=== PATIENT | female | born 1965 | race Caucasian/White ===

== ENCOUNTER 2018-02-27 10:04 | Inpatient (IN) | payer MEDICAID ==
[~2018-02-27] VITALS: Ht 160 cm; Wt 91.6 kg
[2018-02-27] MEDS ORDERED: NACL 0.9% 1,000 ML IV ONE (10:16)
[2018-02-27 10:20] VITALS: BP_SYST 126
[2018-02-27] MEDS ORDERED: KETOROLAC TROMETHAMINE 30 MG VIAL IVP ONE (10:30)
[2018-02-27] MEDS ORDERED: ONDANSETRON HCL 4 MG/2 ML VIAL IVP ONE ×2 (10:30→12:45)
--- NOTE | 2018-02-27 10:50 | NUR ---
DR NICHOLSON AT BEDSIDE FOR EVALUATION, PLACED IN POSITION FOR VAGINAL EXAM. PT TOLERATED IT WELL. SPECIMEN FOR WET MOUNT AND WOUND CULTURE LABELLED AND SENT.
--- NOTE | 2018-02-27 10:51 | NUR ---
Patient to ER bed 7 to gown for evaluation. Side rails up. Report given to Filomena DIAZ.
[2018-02-27 10:59] LABS: BASOPHILS # (AUTO) 0.2 K/uL (0.0-0.2); BASOPHILS % (AUTO) 1.6 % (0.0-2.0); EOSINOPHILS # (AUTO) 0.2 K/uL (0.0-0.4); EOSINOPHILS % (AUTO) 1.5 % (0.0-4.0); HEMATOCRIT 36.6 % (36-48); HEMOGLOBIN 11.7 g/dL (12.0-16.0); LYMPHOCYTES # (AUTO) 1.8 K/uL (1.0-5.5); MEAN CORPUSCULAR HEMOGLOBIN 31 pg (27-31); MEAN CORPUSCULAR HGB CONC 32 % (32-36); MEAN CORPUSCULAR VOLUME 97 fL (79.0-98.0); MONOCYTES # (AUTO) 0.6 K/uL (0.0-1.0); MONOCYTES % (AUTO) 4.6 % (1.7-9.3); NEUTROPHILS # (AUTO) 10.2 K/uL (1.8-7.7); NEUTROPHILS % (AUTO) 78.3 % (40.0-70.0); PLATELET COUNT (AUTO) 496 K/uL (130-430); RED BLOOD CELL COUNT(AUTO) 3.77 MIL/uL (4.2-6.2)
[2018-02-27 11:03] LABS: CALCIUM 9.2 mg/dL (8.4-11.0); CREATININE 1.39 mg/dL (0.55-1.30)
[2018-02-27 11:09] LABS: ALBUMIN 3.6 g/dL (3.4-4.8); INR 1.1 (0.8-1.2); TOTAL BILIRUBIN 0.2 mg/dL (0.0-1.0)
[2018-02-27 11:10] LABS: POTASSIUM 2.5 mmol/L (3.5-5.1)
--- NOTE | 2018-02-27 11:20 | NUR ---
PT RESTING QUIETLY. NO CHANGES
[2018-02-27] MEDS ORDERED: POTASSIUM CHLORIDE 20 MEQ/PKT PACKET PO ONE (12:00)
--- NOTE | 2018-02-27 12:27 | NUR ---
Pt requesting pain medication, Dr Henley notified.
[2018-02-27 12:36] LABS: BILIRUBIN,URINE NEGATIVE (NEGATIVE); BLOOD, URINE 2+ (NEGATIVE); CLARITY/URINE CLEAR (CLEAR); COLOR,URINE YELLOW (YELLOW); GLUCOSE,URINE NEGATIVE (NEGATIVE); KETONES,URINE NEGATIVE (NEGATIVE); LEUKOCYTE ESTERASE ,URINE 3+ (NEGATIVE); NITRITE, URINE NEGATIVE (NEGATIVE); PROTEIN URINE 2+ (NEGATIVE); UROBILINOGEN,URINE 0.2 (0.2-1.0)
[2018-02-27] MEDS ORDERED: MORPHINE 4 MG/ML INJ. SYRINGE IVP ONE (12:45)
[2018-02-27 12:48] LABS: BACTERIA,URINE MODERATE /HPF (None Seen); MUCUS,URINE None Seen /LPF (None Seen)
[2018-02-27] MEDS ORDERED: metroNIDAZOLE 500 mg/NS 100 ML IV ONE (13:00)
[2018-02-27] MEDS ORDERED: metroNIDAZOLE 500 MG TABLET PO ONE ×2 (13:00→13:15)
[2018-02-27] MEDS ORDERED: CIPROFLOXACIN HCL 500 MG TABLET PO ONE (13:00)
[2018-02-27] MEDS ORDERED: cefTRIAXone 1 GM IVPB PREMIX 50 ML IV ONE (13:00)
--- NOTE | 2018-02-27 13:01 | NUR ---
AWAITING ORDERS FOR ADMISSION
--- NOTE | 2018-02-27 13:22 | NUR ---
Patient will be admitted to care of DR READ. Admitted to TELE unit. Will go to room 101B. Belongings list completed. Summary report printed. Report will be given at bedside.
--- NOTE | 2018-02-27 13:39 | NUR ---
ADMISSION NOTE Received patient from ER via gurney. Patient admitted with diagnosis of hypokalemia and gastroenteritis. Patient is awake, alert, oriented X4. Patient oriented to hospital room, call light, toileting, pain management and safety-teach back done. Personal belongings checked and Belongings List documented. Call light within reach.
[2018-02-27 13:42] VITALS: BP_SYST 136
--- NOTE | 2018-02-27 13:43 | NUR ---
CONSULTATION PAGED REASON FOR CONSULTATION:LABIAL LESION WAS CONSULT CALLED?Y PERSON WHO WAS NOTIFIED:ZURDO CONSULTING PHYSICIAN:MATTY CHILDERS (TRISHA MONAE CIVIL RIGHTS REPRESENTATIVE) MEDICAL ASSISTANT SUPERVISOR SPECIALTY:OB MEDICAL ASSISTANT SUPERVISOR PHONE NUMBER:[phone] ORDERING PHYSICIAN:LESLIE GOMEZ
--- NOTE | 2018-02-27 13:50 | NUR ---
Opening Note/Paged received report from admitting RN, pt resting in bed, A&Ox4, respirations even and unlabored on room air, no acute distress noted, IV site clean, dry, and intact, pt complaint of pain 11/05 to vaginal lesion, paged Dr. Rider for orders, pt educated on use of call light and asked to call for assistance, pt verbalized understanding, call light in reach, bed in low and locked position, bed alarm on, fall and aspiration precautions in place.
[2018-02-27] MEDS ORDERED: ONDANSETRON HCL 4 MG/2 ML VIAL IVP PRN (14:45)
[2018-02-27] MEDS ORDERED: ACETAMINOPHEN 325 MG TABLET PO PRN (14:45)
--- NOTE | 2018-02-27 14:49 | NUR ---
MD Rounds rounds with Dr. Adry MD aware of potassium 2.5 and that potassium 40mEq PO was given in ER.
[2018-02-27 15:06] LABS: BARBITURATE, URINE NEGATIVE (NEG <=200); BENZODIAZEPINE, URINE NEGATIVE (NEG <=150); CANNABINOID, URINE NEGATIVE (NEG <=50); COCAINE, URINE NEGATIVE (NEG <=150); METHAMPHETAMINES SCREEN,URINE NEGATIVE (NEG <=500); OPIATE, URINE NEGATIVE (NEG <=100); PHENCYCLIDINE SCREEN,URINE NEGATIVE (NEG <=25); UR TRICYCLIC ANTIDEPRESSANTS NEGATIVE (NEG <=300); URINE AMPHETAMINE NEGATIVE (NEG <=500); URINE METHADONE NEGATIVE (NEG <=200); URINE OXYCODONE SCREEN NEGATIVE (NEG <=100); URINE PROPOXYPHENE SCREEN NEGATIVE (NEG <=300)
[2018-02-27] MEDS ORDERED: POTASSIUM CHLORIDE 20 MEQ TAB.PRT.SR PO ONE (15:15)
[2018-02-27] MEDS ORDERED: LACTOBACILLUS RHAMNOSUS GG 1 CAP CAPSULE PO ONE (15:15)
[2018-02-27] MEDS: LR 1,000 ML IV SCH ×2 (15:27→21:16)
[2018-02-27] MEDS: MORPHINE 4 MG/ML INJ. SYRINGE IVP PRN ×2 (15:28→21:12)
--- NOTE | 2018-02-27 15:36 | NUR ---
Pain Management/Medication pt complaint of pain 11/05 to left labia, pt educated on use and side effects of PRN pain medication and all medications, pt verbalized understanding, tolerated medication administration well, no acute distress noted, pt provided with education on flu vaccine, pt verbalized understanding, tolerated vaccine administration well, pt educated on use of call light and asked to call for assistance, pt verbalized understanding, call light in reach, fall and aspiration precautions in place.
[2018-02-27 16:00] VITALS: BP_SYST 113
[2018-02-27] MEDS ORDERED: ACYCLOVIR 400 MG TABLET PO ONE (17:00)
[2018-02-27] MEDS: POTASSIUM CHLORIDE 20 MEQ TAB.PRT.SR PO SCH ×2 (17:01→21:16)
--- NOTE | 2018-02-27 17:02 | NUR ---
Medication pt educated on medication use and side effects, pt verbalized understanding, tolerated medication administration well, no acute distress noted, fall and aspiration precautions in place.
--- NOTE | 2018-02-27 18:41 | NUR ---
Closing Note pt resting in bed, A&Ox4, respirations even and unlabored on room air, no acute distress noted, IV site clean, dry, intact, and infusing well, SCDs in place, pt educated on use of call light and asked to call for assistance, pt verbalized understanding, call light in reach, bed in low and locked position, bed alarm on, fall and aspiration precautions in place, will endorse care to hourly shift manager RN.
[2018-02-27 19:47] VITALS: BP_SYST 129
--- NOTE | 2018-02-27 19:47 | NUR ---
INITIAL NOTE AT INITIAL ASSESSMENT, RESTING IN BED, STABLE, NO SIGNS OF RESPIRATORY DISTRESS. PATIENT VERBALIZES SEVERE PAIN, PRN MEDICATION WILL BE GIVEN AT THIS TIME. PLAN OF CARE FOR THE EVENING IS COMMUNICATED WITH THE PATIENT. CALL LIGHT- TEACH BACK IS SUCCESSFUL. BED IS LOCKED, AND AT THE LOWEST LEVEL. PATIENT IS REFUSING THE BED ALARM BUT IS ASSESSED WITH STEADY GAIT AND IS NOT A FALL RISK PER PEREIRA FALL SCALE. FALL, AND SAFETY PRECAUTIONS WILL BE IN PLACE THROUGHOUT THE SHIFT.
[2018-02-27] MEDS: ACYCLOVIR 400 MG TABLET PO SCH (21:15)
[2018-02-27] MEDS: metroNIDAZOLE 500 MG TABLET PO SCH (21:15)
[2018-02-27] MEDS: LACTOBACILLUS RHAMNOSUS GG 1 CAP CAPSULE PO SCH (21:15)
[2018-02-27] MEDS: CIPROFLOXACIN HCL 500 MG TABLET PO SCH (21:16)
--- NOTE | 2018-02-27 21:46 | NUR ---
NOTE PATIENT IS RESTING IN BED, STABLE, NO SIGNS OF RESPIRATORY DISTRESS. CALL LIGHT IS WITHIN REACH. BED IS LOCKED, AND AT THE LOWEST LEVEL.
[2018-02-27] MEDS: HYDROcodone/ACETAMIN 10-325 MG TAB PO PRN (22:04)
--- NOTE | 2018-02-27 23:30 | NUR ---
COMMUNICATION WITH DR. READ AND PATIENT DR. READ HAS CALLED BACK AT THIS TIME, IT IS COMMUNICATED TO THE MD THAT THE PATIENT IS VERBALIZING NO RELIEF FROM HER PRN PAIN MEDICATIONS. MD HAS VERBALIZED THAT HE DOES NOT WANT TO INCREASE THE PATIENT'S PRN PAIN MEDICATION ORDERS DUE TO "RISK OF OVERLOADING THE PATIENT WITH PAIN MEDS" AND THAT SHE CAN HAVE AN IBUPROFEN PRN FOR MODERATE PAIN ORDER IF SHE BELIEVES IT IS MORE EFFECTIVE FOR HER PAIN COMPARED TO THE [place] DOSE ORDERED; PATIENT REFUSED THE IBUPROFEN AND WANTS TO STAY WITH HER CURRENT MODERATE PAIN MEDICATION ORDER.
--- NOTE | 2018-02-27 23:44 | NUR ---
SLEEPING MEDICATION REQUEST ALTHOUGH PATIENT HAS BEEN VERBALIZING NO RELIEF FROM PAIN MEDICATION, PATIENT STATES THAT SHE WOULD JUST LIKE "SOMETHING TO HELP FALL ASLEEP", PRN MEDICATION FOR INSOMNIA GIVEN AT THIS TIME.
[2018-02-28 00:05] VITALS: BP_SYST 120
[2018-02-28] MEDS: TEMAZEPAM 15 MG CAPSULE PO PRN ×2 (00:15→22:40)
--- NOTE | 2018-02-28 01:40 | NUR ---
NOTE PATIENT IS SLEEPING, STABLE, NO SIGNS OF RESPIRATORY DISTRESS. CALL LIGHT IS WITHIN REACH. BED IS LOCKED, AND AT THE LOWEST LEVEL.
[2018-02-28] MEDS: MORPHINE 4 MG/ML INJ. SYRINGE IVP PRN ×5 (02:24→21:17)
--- NOTE | 2018-02-28 02:24 | NUR ---
PAIN NOTE PATIENT IS RESTING IN BED, STABLE, NO SIGNS OF RESPIRATORY DISTRESS. PATIENT IS REQUESTING PRN MEDICATION FOR SEVERE PAIN, MEDICATION WILL BE GIVEN AT THIS TIME. CALL LIGHT IS WITHIN REACH. BED IS LOCKED, AND AT THE LOWEST LEVEL.
[2018-02-28] MEDS: LR 1,000 ML IV SCH ×3 (04:20→17:54)
--- NOTE | 2018-02-28 04:20 | NUR ---
NOTE PATIENT IS SLEEPING, STABLE, NO SIGNS OF RESPIRATORY DISTRESS. CALL LIGHT IS WITHIN REACH. BED IS LOCKED, AND AT THE LOWEST LEVEL.
[2018-02-28] MEDS: ACYCLOVIR 400 MG TABLET PO SCH ×3 (06:21→21:14)
[2018-02-28] MEDS: metroNIDAZOLE 500 MG TABLET PO SCH ×3 (06:22→21:14)
--- NOTE | 2018-02-28 06:53 | NUR ---
CLOSING NOTE PATIENT IS SLEEPING, STABLE, NO SIGNS OF RESPIRATORY DISTRESS. THROUGHOUT THE NIGHT, PATIENT VERBALIZED HER PAIN MEDICATION WAS COMPLETELY INEFFECTIVE FOR HER BUT CONTINUES TO ASK FOR HER SEVERE PAIN MEDICATION [id number]. SHE IS ASSESSED WITH STEADY GAIT THROUGHOUT THE SHIFT BUT SEEMED "DRUNK" WHILE SHE IS GETTING OUT OF BED ALTHOUGH SHE VERBALIZES NO DIZZINESS. CALL LIGHT WITHIN REACH. BED IS LOCKED, AND AT THE LOWEST LEVEL. FALL, AND SAFETY PRECAUTIONS HAVE BEEN IN PLACE THROUGHOUT THE SHIFT. WILL CONTINUE TO MONITOR UNTIL SHIFT REPORT IS GIVEN AT BEDSIDE TO AM NURSE.
[2018-02-28 08:00] VITALS: BP_SYST 117
--- NOTE | 2018-02-28 08:00 | NUR ---
Opening Note Report received from [facility] shift nurse. Patient is currently resting in bed. Patient is complaining of pain on the vaginal folds. OB consult is pending. Patient has been medicated accordingly. Iv is on the right hand 22g running LR@150. Call light is within reach and bed is in low position. Will continue to monitor.
[2018-02-28] MEDS: POTASSIUM CHLORIDE 20 MEQ TAB.PRT.SR PO SCH ×4 (08:56→21:14)
[2018-02-28] MEDS: LACTOBACILLUS RHAMNOSUS GG 1 CAP CAPSULE PO SCH ×2 (08:56→21:15)
[2018-02-28] MEDS: CIPROFLOXACIN HCL 500 MG TABLET PO SCH ×2 (08:56→21:15)
[2018-02-28] MEDS: cefTRIAXone 1 GM in D5W 50 ML IV SCH (08:56)
[2018-02-28] MEDS: HYDROcodone/ACETAMIN 10-325 MG TAB PO PRN (09:04)
--- NOTE | 2018-02-28 10:20 | NUR ---
Rounds Patient is resting in bed. Call light is within reach.
--- NOTE | 2018-02-28 11:00 | NUR ---
MD Rounds Dr. Andrade is covering for Dr. Azul. rounded on the patient. No new orders received.
[2018-02-28 12:00] VITALS: BP_SYST 108
--- NOTE | 2018-02-28 12:00 | NUR ---
Orthostatic BP Orthostatic BP done and documented. Instructed the patient to use her call light whenever in need of assistance. Addendum: 02/28/18 at 1530 by Perla Muñoz RN not intended for this patient
--- NOTE | 2018-02-28 12:15 | NUR ---
Rounds Patient is resting in bed. Call light is within reach.
--- NOTE | 2018-02-28 13:37 | NUR ---
Pain med Medicated the patient for pain using the indicated pain scale. Will reassess.
--- NOTE | 2018-02-28 14:30 | NUR ---
Rounds Patient is currently having a venous doppler done. Addendum: 02/28/18 at 1530 by Perla Muñoz RN not intended for this patient
--- NOTE | 2018-02-28 14:46 | NUR ---
Rounds Patient is resting in bed. No signs of distress noted at the moment
[2018-02-28 16:00] VITALS: BP_SYST 126
--- NOTE | 2018-02-28 16:40 | NUR ---
Rounds Assisted the patient with the bedpan.
--- NOTE | 2018-02-28 18:10 | NUR ---
Closing Note Patient is currently resting in bed. IV is on the right hand 20g running LR@150. Labs are pending for today. Call light is within reach and bed is in low position. Will endorse care to the oncoming nurse.
[2018-02-28 18:19] LABS: BASOPHILS % (AUTO) 0.4 % (0.0-2.0); CALCIUM 8.6 mg/dL (8.4-11.0); CREATININE 1.01 mg/dL (0.55-1.30); EOSINOPHILS # (AUTO) 0.3 K/uL (0.0-0.4); EOSINOPHILS % (AUTO) 2.5 % (0.0-4.0); HEMATOCRIT 28.8 % (36-48); HEMOGLOBIN 9.3 g/dL (12.0-16.0); LYMPHOCYTES # (AUTO) 1.5 K/uL (1.0-5.5); LYMPHOCYTES % (AUTO) 12.7 % (20.5-51.5); MEAN CORPUSCULAR HEMOGLOBIN 32 pg (27-31); MEAN CORPUSCULAR HGB CONC 33 % (32-36); MEAN CORPUSCULAR VOLUME 97 fL (79.0-98.0); MONOCYTES # (AUTO) 0.5 K/uL (0.0-1.0); MONOCYTES % (AUTO) 4.1 % (1.7-9.3); NEUTROPHILS # (AUTO) 9.3 K/uL (1.8-7.7); NEUTROPHILS % (AUTO) 80.3 % (40.0-70.0); PLATELET COUNT (AUTO) 311 K/uL (130-430); POTASSIUM 3.3 mmol/L (3.5-5.1); RED BLOOD CELL COUNT(AUTO) 2.96 MIL/uL (4.2-6.2); RED CELL DISTRIBUTION WIDTH 15.9 % (9.0-15.0); WHITE BLOOD COUNT (AUTO) 11.6 K/uL (4.8-10.8)
[2018-02-28] MEDS ORDERED: SODIUM BICARBONATE 650 MG TABLET PO SCH (18:45)
--- NOTE | 2018-02-28 19:44 | NUR ---
INITIAL NOTE AT INITIAL ASSESSMENT, RESTING IN BED, STABLE, NO SIGNS OF RESPIRATORY DISTRESS. PATIENT VERBALIZES TOLERABLE PAIN AT THIS TIME, SHE STATES SHE DOES NOT FEEL DIZZY. PLAN OF CARE FOR THE EVENING IS COMMUNICATED WITH THE PATIENT. CALL LIGHT- TEACH BACK IS SUCCESSFUL. BED IS LOCKED, AND AT THE LOWEST LEVEL. PATIENT IS REFUSING THE BED ALARM BUT IS ASSESSED WITH STEADY GAIT AND IS NOT A FALL RISK PER PEREIRA FALL SCALE. FALL, AND SAFETY PRECAUTIONS WILL BE IN PLACE THROUGHOUT THE SHIFT.
[2018-02-28 19:51] VITALS: BP_SYST 116
[2018-02-28] MEDS: SODIUM BICARBONATE 650 MG TABLET PO SCH (21:14)
--- NOTE | 2018-02-28 21:42 | NUR ---
PAIN NOTE PATIENT IS RESTING IN BED, STABLE, NO SIGNS OF RESPIRATORY DISTRESS. PRN MEDICATION FOR SEVERE PAIN GIVEN AT THIS TIME FOR PATIENT'S SEVERE PAIN COMPLAINT. CALL LIGHT WITHIN REACH. BED IS LOCKED, AND AT THE LOWEST LEVEL.
--- NOTE | 2018-02-28 23:40 | NUR ---
NOTE PATIENT IS SLEEPING, STABLE, NO SIGNS OF RESPIRATORY DISTRESS. PRN MEDICATION FOR INSOMNIA WAS EFFECTIVE. CALL LIGHT WITHIN REACH. BED IS LOCKED, AND AT THE LOWEST LEVEL.
[2018-03-01 00:52] LABS: CHLAMYDIA TRACHOMATIS NAA Negative (Negative); NEISSERIA GONORRHOEAE NAA Negative (Negative)
--- NOTE | 2018-03-01 01:37 | NUR ---
NOTE PATIENT IS SLEEPING, STABLE, NO SIGNS OF RESPIRATORY DISTRESS. CALL LIGHT WITHIN REACH. BED IS LOCKED, AND AT THE LOWEST LEVEL.
[2018-03-01] MEDS: LR 1,000 ML IV SCH ×2 (03:33→16:29)
--- NOTE | 2018-03-01 03:36 | NUR ---
NOTE PATIENT IS SLEEPING, STABLE, NO SIGNS OF RESPIRATORY DISTRESS. CALL LIGHT WITHIN REACH. BED IS LOCKED, AND AT THE LOWEST LEVEL.
--- NOTE | 2018-03-01 05:33 | NUR ---
PATIENT CONFUSION NOTE PATIENT IS GIVEN SCHEDULED AM 0600 MEDICATION AT THIS TIME. SHE IS CONFUSED EVEN AFTER 10 MINUTES OF WAKING UP, SHE ASKS "DID THE DOCTOR SAY I CAN HAVE THE PAIN MED YET?!", PATIENT SEEMS TO HAVE FORGOTTEN THAT SHE HAS BEEN RECEIVING HER PAIN MEDICATION UPON REQUEST FOR THE LAST THREE SHIFTS. PATIENT IS REORIENTED BUT STILL SEEMS TO HAVE SHORT TERM MEMORY LOSS. WILL CONTINUE TO MONITOR CLOSELY, INCOMING AM NURSE WILL BE MADE AWARE TO MONITOR PATIENT'S NEUROLOGICAL STATUS. PATIENT IS RESTING IN BED, STABLE, NO SIGNS OF RESPIRATORY DISTRESS. CALL LIGHT WITHIN REACH. BED IS LOCKED, AND AT THE LOWEST LEVEL.
[2018-03-01] MEDS: metroNIDAZOLE 500 MG TABLET PO SCH ×3 (05:45→21:12)
[2018-03-01] MEDS: ACYCLOVIR 400 MG TABLET PO SCH ×3 (05:45→21:13)
[2018-03-01] MEDS: MORPHINE 4 MG/ML INJ. SYRINGE IVP PRN ×2 (05:48→12:18)
[2018-03-01 06:15] VITALS: BP_SYST 98
--- NOTE | 2018-03-01 06:55 | NUR ---
CLOSING NOTE PATIENT IS SLEEPING, STABLE, NO SIGNS OF RESPIRATORY DISTRESS. THROUGHOUT THE NIGHT, PATIENT HAD SLIGHT PERIODS OF CONFUSION. SHE VERBALIZES THAT THE PRN MEDIATION WAS MORE EFFECTIVE FOR HER TONIGHT THAN THE STEPHANE NIGHT. CALL LIGHT WITHIN REACH. BED IS LOCKED, AND AT THE LOWEST LEVEL. FALL, AND SAFETY PRECAUTIONS HAVE BEEN IN PLACE THROUGHOUT THE SHIFT. WILL CONTINUE TO MONITOR UNTIL SHIFT REPORT IS GIVEN AT BEDSIDE TO AM NURSE.
[2018-03-01 07:36] LABS: BASOPHILS % (AUTO) 0.1 % (0.0-2.0); EOSINOPHILS # (AUTO) 0.3 K/uL (0.0-0.4); EOSINOPHILS % (AUTO) 2.8 % (0.0-4.0); HEMATOCRIT 27.9 % (36-48); HEMOGLOBIN 9.1 g/dL (12.0-16.0); LYMPHOCYTES # (AUTO) 1.4 K/uL (1.0-5.5); LYMPHOCYTES % (AUTO) 13.1 % (20.5-51.5); MEAN CORPUSCULAR HEMOGLOBIN 32 pg (27-31); MEAN CORPUSCULAR HGB CONC 33 % (32-36); MEAN CORPUSCULAR VOLUME 97 fL (79.0-98.0); MONOCYTES # (AUTO) 0.6 K/uL (0.0-1.0); MONOCYTES % (AUTO) 5.7 % (1.7-9.3); NEUTROPHILS # (AUTO) 8.3 K/uL (1.8-7.7); NEUTROPHILS % (AUTO) 78.3 % (40.0-70.0); PLATELET COUNT (AUTO) 292 K/uL (130-430); RED BLOOD CELL COUNT(AUTO) 2.88 MIL/uL (4.2-6.2); RED CELL DISTRIBUTION WIDTH 16.2 % (9.0-15.0); WHITE BLOOD COUNT (AUTO) 10.6 K/uL (4.8-10.8)
[2018-03-01 07:56] LABS: CALCIUM 8.6 mg/dL (8.4-11.0); CREATININE 0.9 mg/dL (0.55-1.30); POTASSIUM 3.3 mmol/L (3.5-5.1)
[2018-03-01 08:00] VITALS: BP_SYST 152
--- NOTE | 2018-03-01 08:00 | NUR ---
opening note Report received from [facility] shift nurse. Patient is currently sleeping in bed. IV is on the right hand 20g running LR@100. No signs of distress noted at the moment. Call light is within reach and bed is in low position. Will continue to monitor.
[2018-03-01] MEDS: SODIUM BICARBONATE 650 MG TABLET PO SCH ×3 (09:07→21:13)
[2018-03-01] MEDS: POTASSIUM CHLORIDE 20 MEQ TAB.PRT.SR PO SCH ×4 (09:07→21:12)
[2018-03-01] MEDS: CIPROFLOXACIN HCL 500 MG TABLET PO SCH ×2 (09:07→21:13)
[2018-03-01] MEDS: LACTOBACILLUS RHAMNOSUS GG 1 CAP CAPSULE PO SCH ×2 (09:07→21:12)
[2018-03-01] MEDS: cefTRIAXone 1 GM in D5W 50 ML IV SCH (09:10)
[2018-03-01] MEDS: HYDROcodone/ACETAMIN 10-325 MG TAB PO PRN ×2 (09:17→18:51)
--- NOTE | 2018-03-01 10:20 | NUR ---
RN Notes Dr. Andrade rounded on the patient. Herpes swab was done.
--- NOTE | 2018-03-01 10:51 | NUR ---
Nutrition Update Adi Scale 17 noted. Pt admitted for gastroenteritis, hypokalemia. Diet: clear liquid BMI: 30 kg/m2 RD to follow per nutrition care standards.
[2018-03-01 12:00] VITALS: BP_SYST 102
--- NOTE | 2018-03-01 12:37 | NUR ---
Rounds Patient is resting in bed. Call light is within reach.
--- NOTE | 2018-03-01 14:38 | NUR ---
Rounds Patient is resting in bed Call light is within reach.
[2018-03-01 16:00] VITALS: BP_SYST 108
--- NOTE | 2018-03-01 16:47 | NUR ---
Rounds Medicated the patient for pain. Will reassess
--- NOTE | 2018-03-01 18:30 | NUR ---
Closing Note Medicated the patient for pain. IV is on the left wrist 20g running LR @100. No signs of distress at the moment. call light is within reach. Will endorse care tot the oncoming nurse.
[2018-03-01 19:43] VITALS: BP_SYST 114
--- NOTE | 2018-03-01 19:43 | NUR ---
INITIAL NOTE AT INITIAL ASSESSMENT, PATIENT IS RESTING IN BED, STABLE, NO SIGNS OF RESPIRATORY DISTRESS. PATIENT VERBALIZES TOLERABLE PAIN. PLAN OF CARE FOR THE EVENING IS COMMUNICATED WITH THE PATIENT. CALL LIGHT- TEACH BACK IS SUCCESSFUL. BED IS LOCKED, ALARMED, AND AT THE LOWEST LEVEL. FALL AND SAFETY PRECAUTIONS WILL BE IN PLACE THROUGHOUT THE SHIFT.
--- NOTE | 2018-03-01 21:40 | NUR ---
NOTE PATIENT IS RESTING IN BED, STABLE, NO SIGNS OF RESPIRATORY DISTRESS. CALL LIGHT WITHIN REACH. BED IS LOCKED, ALARMED, AND AT THE LOWEST LEVEL.
--- NOTE | 2018-03-01 23:36 | NUR ---
NOTE PATIENT IS SLEEPING, STABLE, NO SIGNS OF RESPIRATORY DISTRESS. CALL LIGHT WITHIN REACH. BED IS LOCKED, ALARMED, AND AT THE LOWEST LEVEL.
--- NOTE | 2018-03-02 01:35 | NUR ---
NOTE PATIENT IS SLEEPING, STABLE, NO SIGNS OF RESPIRATORY DISTRESS. CALL LIGHT WITHIN REACH. BED IS LOCKED, ALARMED, AND AT THE LOWEST LEVEL.
--- NOTE | 2018-03-02 03:32 | NUR ---
NOTE PATIENT IS SLEEPING, STABLE, NO SIGNS OF RESPIRATORY DISTRESS. CALL LIGHT WITHIN REACH. BED IS LOCKED, ALARMED, AND AT THE LOWEST LEVEL.
--- NOTE | 2018-03-02 03:47 | NUR ---
CONSULT CONSULT CALLED FOR DR. WHITE I SPOKE WITH [place]TEGA REASON FOR CONSULT: CELLULITIS REQUESTING CONSULT: DR. READ DOCKWORKER PHONE NUMBER: [phone]
--- NOTE | 2018-03-02 05:31 | NUR ---
NOTE PATIENT IS RESTING IN BED, STABLE, NO SIGNS OF RESPIRATORY DISTRESS. CALL LIGHT WITHIN REACH. BED IS LOCKED, ALARMED, AND AT THE LOWEST LEVEL.
[2018-03-02] MEDS: ACYCLOVIR 400 MG TABLET PO SCH (06:36)
[2018-03-02] MEDS: metroNIDAZOLE 500 MG TABLET PO SCH ×3 (06:36→22:12)
[2018-03-02] MEDS: MORPHINE 4 MG/ML INJ. SYRINGE IVP PRN ×4 (06:40→20:13)
--- NOTE | 2018-03-02 06:44 | NUR ---
CLOSING NOTE PATIENT IS RESTING IN BED, STABLE, NO SIGNS OF RESPIRATORY DISTRESS. AM MEDICATION GIVEN WELL PRN PAIN MEDICATION FOR PATIENT'S COMPLAINT OF SEVERE PAIN. CALL LIGHT WITHIN REACH. BED IS LOCKED, ALARMED, AND AT THE LOWEST LEVEL.
[2018-03-02 07:36] LABS: BASOPHILS # (AUTO) 0.3 K/uL (0.0-0.2); BASOPHILS % (AUTO) 2.8 % (0.0-2.0); EOSINOPHILS # (AUTO) 0.3 K/uL (0.0-0.4); EOSINOPHILS % (AUTO) 2.8 % (0.0-4.0); HEMATOCRIT 28.3 % (36-48); HEMOGLOBIN 8.9 g/dL (12.0-16.0); LYMPHOCYTES # (AUTO) 1.8 K/uL (1.0-5.5); LYMPHOCYTES % (AUTO) 17.1 % (20.5-51.5); MEAN CORPUSCULAR HEMOGLOBIN 31 pg (27-31); MEAN CORPUSCULAR HGB CONC 32 % (32-36); MEAN CORPUSCULAR VOLUME 98 fL (79.0-98.0); MONOCYTES # (AUTO) 0.6 K/uL (0.0-1.0); MONOCYTES % (AUTO) 5.4 % (1.7-9.3); NEUTROPHILS # (AUTO) 7.5 K/uL (1.8-7.7); NEUTROPHILS % (AUTO) 71.9 % (40.0-70.0); PLATELET COUNT (AUTO) 311 K/uL (130-430); RED BLOOD CELL COUNT(AUTO) 2.89 MIL/uL (4.2-6.2); RED CELL DISTRIBUTION WIDTH 16.3 % (9.0-15.0); WHITE BLOOD COUNT (AUTO) 10.5 K/uL (4.8-10.8)
--- NOTE | 2018-03-02 07:44 | NUR ---
Senior Data Developer consult called: for Dr. Diego (Dr. Horne office [employer] consultant), regarding labial lesion, ordered by Dr. Rider, spoke with Alta.
[2018-03-02 07:58] LABS: CALCIUM 8.6 mg/dL (8.4-11.0); CREATININE 0.93 mg/dL (0.55-1.30); POTASSIUM 3.3 mmol/L (3.5-5.1)
[2018-03-02 08:00] VITALS: BP_SYST 139
--- NOTE | 2018-03-02 08:00 | NUR ---
OPENING NOTE: RECEIVED REPORT FROM NIGHT NURSE. PATIENT IS RESTING COMFORTABLY IN BED. NO S/S OF DISTRESS OR SOB. PATIENT IS ALERT AND ORIENTED, ABLE TO EXPRESS NEEDS, AND ASK FOR ASSISTANCE. IV IS PATENT AND SALINE LOCKED. VITAL SIGNS WNL, ASSESSMENT COMPLETE. CALL LIGHT IN REACH, BED IN LOWEST POSITION ,AND WILL CONTINUE TO MONITOR.
[2018-03-02] MEDS: LACTOBACILLUS RHAMNOSUS GG 1 CAP CAPSULE PO SCH ×2 (09:19→20:11)
[2018-03-02] MEDS: CIPROFLOXACIN HCL 500 MG TABLET PO SCH (09:19)
[2018-03-02] MEDS: SODIUM BICARBONATE 650 MG TABLET PO SCH ×3 (09:19→20:11)
[2018-03-02] MEDS: POTASSIUM CHLORIDE 20 MEQ TAB.PRT.SR PO SCH ×4 (09:20→20:11)
[2018-03-02] MEDS: HYDROcodone/ACETAMIN 10-325 MG TAB PO PRN (09:21)
[2018-03-02] MEDS: cefTRIAXone 1 GM in D5W 50 ML IV SCH (09:22)
--- NOTE | 2018-03-02 10:00 | NUR ---
RN ROUNDS PATIENT IS RESTING COMFORTABLY IN BED. NO S/S OF DISTRESS OR SOB. PATIENT IS AWAKE AND ALERT. NO NEEDS AT THIS TIME. CALL LIGHT IN REACH, BED IN LOWEST POSITION, AND WILL CONTINUE TO MONITOR.
--- NOTE | 2018-03-02 12:00 | NUR ---
RN ROUNDS PATIENT IS RESTING COMFORTABLY IN BED. NO S/S OF DISTRESS OR SOB. PATIENT IS ALERT AND ORIENTED. PAIN CONTROLLED. NO NEEDS EXPRESSED AT THIS TIME. CALL LIGHT IN REACH, BED IN LOWEST POSITION, AND WILL CONTINUE TO MONITOR.
[2018-03-02 12:09] LABS: TOTAL IRON BIND. CAPACITY 195 ug/dL (250-450)
--- NOTE | 2018-03-02 12:15 | NUR ---
CONSULTATION PAGED REASON FOR CONSULTATION:NEPHROPATHY WAS CONSULT CALLED?Y PERSON WHO WAS NOTIFIED:DEANGELO CONSULTING PHYSICIAN:SIS SOLARES ORGANIC EXTRACTIONS TECHNICIAN SPECIALTY:RENAL ORGANIC EXTRACTIONS TECHNICIAN PHONE NUMBER:[phone] ORDERING PHYSICIAN:HERSON GOMEZ
[2018-03-02] MEDS: ACYCLOVIR IV 500 MG in D5W 100 ML IV SCH ×2 (13:44→22:12)
--- NOTE | 2018-03-02 14:04 | NUR ---
RN ROUNDS PATIENT IS RESTING COMFORTABLY IN BED. NO S/S OF DISTRESS OR SOB. PATIENT IS ALERT AND ORIENTED. NO NEW NEEDS AT THIS TIME. CALL LIGHT IN REACH, BED IN LOWEST POSITION, AND WILL CONTINUE TO MONITOR.
--- NOTE | 2018-03-02 16:31 | NUR ---
RN ROUNDS PATIENT IS RESTING COMFORTABLY IN BED. NO S/S OF DISTRESS OR SOB. PATIENT RECENTLY MEDICATED FOR PAIN. PAIN CONTROLLED AT THE MOMENT. NO OTHER NEEDS AT THE TIME. CALL LIGHT IN REACH, BED IN LOWEST POSITION, AND WILL CONTINUE TO MONITOR.
[2018-03-02 16:58] VITALS: BP_SYST 119
--- NOTE | 2018-03-02 18:36 | NUR ---
CLOSING NOTE: PATIENT IS RESTING COMFORTABLY IN BED. NO S/S OF DISTRESS OR SOB. PATIENT IS ALERT AND ORIENTED. ALL NEEDS MET DURING SHIFT. CALL LIGHT IN REACH, BED IN LOWEST POSITION, AND WILL GIVE REPORT TO NIGHT NURSE.
--- NOTE | 2018-03-02 19:18 | NUR ---
OPENING NOTE Patient resting in the bed. No acute distress. Respiration even and unlabored. AAO x 4. Skin warm and dry to touch. SL intact to left hand, no redness, no swelling, patent. Discussed the safety issue, use call light when needs help, and plan of care, verbally understanding. Safety measure maintained. Call light within reached. Bed locked in low position, side rails up. Refused bed alarm, risk and benefit explained, verbally understanding. Will continue to monitor.
[2018-03-02 20:00] VITALS: BP_SYST 140
--- NOTE | 2018-03-02 20:13 | NUR ---
MORPHINE GIVEN Patient c/o left labia pain 11/05, Morphine 4mg IVP given as ordered. No acute distress. Safety measure maintained. Bed locked in low position, side rails up. Call light within reached. Continue to monitor.
--- NOTE | 2018-03-02 22:15 | NUR ---
BATHROOM Ambulated to bathroom in steady gait with minimum assistance. Assisted back to bed. No acute distress. Safety measure maintained. Call light within reached. Bed locked in low position, side rails up. Continue to monitor.
[2018-03-03] MEDS: TEMAZEPAM 15 MG CAPSULE PO PRN (00:05)
--- NOTE | 2018-03-03 00:06 | NUR ---
RESTORIL GIVEN Patient c/o insomnia, Restoril 30mg Po given as ordered. No acute distress. Skin warm and dry to touch. Safety measure maintained. Bed locked in low position, side rails up. Refused bed alarm, risk and benefitr explained, verbally understanding. Call light within reached. Continue to monitor.
[2018-03-03 00:19] VITALS: BP_SYST 102
--- NOTE | 2018-03-03 01:48 | NUR ---
ROUND Patient resting in the bed with eyes closed. No acute distress. Respiration even and unlabored. Safety measure maintained. Bed locked in low position, side rails up. Call light within reached. Continue to monitor.
[2018-03-03] MEDS: MORPHINE 4 MG/ML INJ. SYRINGE IVP PRN ×5 (02:55→22:19)
--- NOTE | 2018-03-03 04:35 | NUR ---
ROUND Patient resting in the bed with eyes closed. No acute distress. Safety measure maintained. Bed locked in low position, side rails up. Call light within reached. Continue to monitor.
[2018-03-03] MEDS: ACYCLOVIR IV 500 MG in D5W 100 ML IV SCH ×3 (05:25→22:06)
[2018-03-03] MEDS: metroNIDAZOLE 500 MG TABLET PO SCH ×3 (05:25→22:06)
--- NOTE | 2018-03-03 05:30 | NUR ---
IV RE-INSERTION: Noted IV site leakage. Restarted on LAC, gauge 22. Successful after one attempt. Procedure tolerated well. Connect to IV antibiotic. Will observe for any signs of infiltration.
--- NOTE | 2018-03-03 06:53 | NUR ---
CLOSING NOTE Patient resting in the bed. No acute distress. Respiration even and unlabored. Skin warm and dry to touch. SL intact to LAC, no redness, no swelling, patent. All needs met. Hourly rounding during shift. Safety measure maintained. Call light within reached. Bed locked in low position, side rails up. Refused bed alarm, risk and benefit explained, verbally understanding. Will endorse to morning shift nurse.
[2018-03-03 07:22] LABS: BASOPHILS % (AUTO) 0.3 % (0.0-2.0); EOSINOPHILS # (AUTO) 0.3 K/uL (0.0-0.4); EOSINOPHILS % (AUTO) 3.4 % (0.0-4.0); HEMATOCRIT 27.1 % (36-48); HEMOGLOBIN 8.7 g/dL (12.0-16.0); LYMPHOCYTES # (AUTO) 2.4 K/uL (1.0-5.5); LYMPHOCYTES % (AUTO) 23.7 % (20.5-51.5); MEAN CORPUSCULAR HEMOGLOBIN 32 pg (27-31); MEAN CORPUSCULAR HGB CONC 32 % (32-36); MEAN CORPUSCULAR VOLUME 98 fL (79.0-98.0); MONOCYTES # (AUTO) 0.8 K/uL (0.0-1.0); MONOCYTES % (AUTO) 7.8 % (1.7-9.3); NEUTROPHILS # (AUTO) 6.5 K/uL (1.8-7.7); NEUTROPHILS % (AUTO) 64.8 % (40.0-70.0); PLATELET COUNT (AUTO) 298 K/uL (130-430); RED BLOOD CELL COUNT(AUTO) 2.76 MIL/uL (4.2-6.2); RED CELL DISTRIBUTION WIDTH 16.4 % (9.0-15.0)
[2018-03-03 07:33] LABS: CALCIUM 8.3 mg/dL (8.4-11.0); CREATININE 0.91 mg/dL (0.55-1.30); POTASSIUM 3.5 mmol/L (3.5-5.1)
[2018-03-03 07:39] VITALS: BP_SYST 146
--- NOTE | 2018-03-03 07:57 | NUR ---
Initial note: Patient is alert, oriented x4, states having pain on her labia 10/10. Give Morphine 4 mg IVP as PRN ordered. Encourage to call when she need to get up after pain med given. Will continue monitor.
[2018-03-03] MEDS: POTASSIUM CHLORIDE 20 MEQ TAB.PRT.SR PO SCH ×4 (08:01→22:06)
[2018-03-03] MEDS: LACTOBACILLUS RHAMNOSUS GG 1 CAP CAPSULE PO SCH ×2 (08:01→22:06)
[2018-03-03] MEDS: SODIUM BICARBONATE 650 MG TABLET PO SCH ×3 (08:02→22:06)
[2018-03-03] MEDS: cefTRIAXone 1 GM in D5W 50 ML IV SCH (08:02)
--- NOTE | 2018-03-03 10:00 | NUR ---
PATIENT IS SEEN WALKING AROUND WITH THE IV POLE. NO SIGNS OF DISTRESS NOTED.
[2018-03-03] MEDS: HYDROcodone/ACETAMIN 10-325 MG TAB PO PRN ×2 (10:54→15:32)
[2018-03-03 11:52] VITALS: BP_SYST 120
--- NOTE | 2018-03-03 11:56 | NUR ---
PATIENT IS NOW BACK IN BED. AWAITING LUNCH.
--- NOTE | 2018-03-03 14:18 | NUR ---
PATIENT IS RESTING AT BED, STILL C/O PAIN BUT MANAGEABLE AT THIS TIME.
[2018-03-03] MEDS ORDERED: DIATR MEGLU/DIATRIZ SOD 30 ML SOLUTION PO ONE (15:18)
--- NOTE | 2018-03-03 16:15 | NUR ---
PATIENT HAS BEEN INSTRUCTED TO DRINK MUCH CONTRAST SHE CAN. WILL MONITOR FOR DISCOMFORT.
[2018-03-03 17:12] VITALS: BP_SYST 112
[2018-03-03] MEDS ORDERED: IOHEXOL 100 ML IV ONE (17:25)
--- NOTE | 2018-03-03 17:30 | NUR ---
PATIENT TO CT SCAN. TOLERATED TRANSPORT WITHOUT DISTRESS.
--- NOTE | 2018-03-03 18:15 | NUR ---
PATIENT IS EATING DINNER, NO SIGNS OF DISTRESS NOTED.
--- NOTE | 2018-03-03 19:18 | NUR ---
OPENING NOTE Patient resting in the bed with eyes closed. No acute distress. Respiration even and unlabored. Skin warm and dry to touch. SL intact to left hand, no redness, no swelling. Safety measure maintained. Call light within reached. Bed locked in low position, side rails up. Will continue to monitor.
[2018-03-03 19:40] VITALS: BP_SYST 121
--- NOTE | 2018-03-03 21:02 | NUR ---
BATHROOM Ambulated to bathroom in steady gait with assistance. Assisted back to bed. No acute distress. Refused bed alarm and SCD. Risk and benefit explained, verbally understanding. Safety measure maintained. Bed locked in low position, side rails up. Call light within reached. Continue to monitor.
[2018-03-04 00:25] VITALS: BP_SYST 114
--- NOTE | 2018-03-04 00:40 | NUR ---
ROUND Patient resting in the bed with eyes closed. Respiration even and unlabored. Safety measure maintained. Call light within reached. Bed locked in low position, side rails up. Continue to monitor.
--- NOTE | 2018-03-04 02:15 | NUR ---
ROUND Patient resting in the bed with eyes closed. Respiration even and unlabored. Safety measure maintained. Bed locked in low position, side rails up. Call light within reached. Continue to monitor.
[2018-03-04] MEDS: MORPHINE 4 MG/ML INJ. SYRINGE IVP PRN ×5 (03:52→21:02)
--- NOTE | 2018-03-04 03:52 | NUR ---
MORPHINE GIVEN Patient c/o left labia pain 10/05, Morphine 4mg IVP given as ordered. No acute distress. Safety measure maintained. Bed locked in low position, side rails up. Call light within reached. Continue to monitor.
--- NOTE | 2018-03-04 05:10 | NUR ---
BATHROOM Ambulated to bathroom in steady gait with assistance. Assisted back to bed. No acute distress. Risk and benefit explained, verbally understanding. Safety measure maintained. Bed locked in low position, side rails up. Call light within reached. Continue to monitor.
[2018-03-04] MEDS: metroNIDAZOLE 500 MG TABLET PO SCH ×3 (06:28→20:59)
[2018-03-04] MEDS: ACYCLOVIR IV 500 MG in D5W 100 ML IV SCH ×3 (06:29→21:00)
--- NOTE | 2018-03-04 06:48 | NUR ---
CLOSING NOTE Patient resting in the bed comfortable. No acute distress. Respiration even and unlabored. Skin warm and dry to touch. SL intact to left hand, no redness, no swelling. All needs met. Hourly rounding during shift. Safety measure maintained. Call light within reached. Bed locked in low position, side rails up. Will endorse to morning shift nurse.
--- NOTE | 2018-03-04 07:20 | NUR ---
INITIAL NOTE RECEIVED PATIENT FROM A AUXILIARY NURSE, PATIENT IS CURRENTLY RESTING IN BED, NO SIGNS OF DISTRESS NOTED, BREATHING IS EVEN AND UNLABORED, PATIENT HAS IV IN LEFT AC WITH IV ANTIBIOTICS RUNNING, NO SIGNS OF INFILTRATION NOTED, INSTRUCTED PATIENT TO USE CALL BELLA IF ASSISTANCE IS NEEDED, PATIENT VERBALIZED UNDERSTANDING, FALL PRECAUTIONS IN PLACE.
[2018-03-04 07:50] LABS: BASOPHILS % (AUTO) 0.2 % (0.0-2.0); EOSINOPHILS # (AUTO) 0.6 K/uL (0.0-0.4); EOSINOPHILS % (AUTO) 4.5 % (0.0-4.0); HEMATOCRIT 30.5 % (36-48); HEMOGLOBIN 9.9 g/dL (12.0-16.0); LYMPHOCYTES # (AUTO) 3.1 K/uL (1.0-5.5); LYMPHOCYTES % (AUTO) 22.8 % (20.5-51.5); MEAN CORPUSCULAR HEMOGLOBIN 32 pg (27-31); MEAN CORPUSCULAR HGB CONC 33 % (32-36); MEAN CORPUSCULAR VOLUME 99 fL (79.0-98.0); MONOCYTES # (AUTO) 0.9 K/uL (0.0-1.0); MONOCYTES % (AUTO) 6.5 % (1.7-9.3); NEUTROPHILS # (AUTO) 9.1 K/uL (1.8-7.7); PLATELET COUNT (AUTO) 394 K/uL (130-430); RED BLOOD CELL COUNT(AUTO) 3.09 MIL/uL (4.2-6.2); RED CELL DISTRIBUTION WIDTH 16.4 % (9.0-15.0)
[2018-03-04 07:52] LABS: ALBUMIN 2.7 g/dL (3.4-4.8); CALCIUM 8.8 mg/dL (8.4-11.0); CREATININE 0.97 mg/dL (0.55-1.30); POTASSIUM 4.7 mmol/L (3.5-5.1); TOTAL BILIRUBIN 0.2 mg/dL (0.0-1.0); WHITE BLOOD COUNT (AUTO) 13.7 K/uL (4.8-10.8)
[2018-03-04 08:00] VITALS: BP_SYST 128
[2018-03-04] MEDS: SODIUM BICARBONATE 650 MG TABLET PO SCH ×3 (08:03→20:59)
[2018-03-04] MEDS: cefTRIAXone 1 GM in D5W 50 ML IV SCH (08:04)
[2018-03-04] MEDS: POTASSIUM CHLORIDE 20 MEQ TAB.PRT.SR PO SCH ×4 (08:04→20:59)
[2018-03-04] MEDS: LACTOBACILLUS RHAMNOSUS GG 1 CAP CAPSULE PO SCH ×2 (08:04→20:59)
--- NOTE | 2018-03-04 08:06 | NUR ---
MEDICATION PATIENT PROVIDED MORNING MEDICATION WELL PRN PAIN MEDICATION, WILL REASSESS EFFECTIVENESS, NO OTHER NEEDS AT THIS TIME, WILL CONTINUE TO MONITOR. FALL PRECAUTIONS IN PLACE.
--- NOTE | 2018-03-04 09:14 | NUR ---
RN ROUNDS PATIENT RESTING IN BED WITH EYES CLOSED, NO SIGNS OF DISTRESS NOTED, CALL BELLA WITHIN REACH, WILL CONTINUE TO MONITOR.
--- NOTE | 2018-03-04 10:36 | NUR ---
RN ROUNDS Patient resting in bed, no signs of distress noted, no complaints of pain at this time, will continue to monitor.
[2018-03-04 12:02] VITALS: BP_SYST 124
--- NOTE | 2018-03-04 12:23 | NUR ---
RN ROUNDS PATIENT GIVEN PRN PAIN MEDICATIONS, NO OTHER NEEDS AT THIS TIME, WILL CONTINUE TO MONITOR.
--- NOTE | 2018-03-04 14:33 | NUR ---
RN ROUNDS PATIENT RESTING IN BED, NO COMPLAINTS OF PAIN OR DISCOMFORT AT THIS TIME, CALL BELLA WITHIN REACH, FALL PRECAUTIONS IN PLACE.
--- NOTE | 2018-03-04 15:29 | NUR ---
Dietitian Recommendations * Recommend continuing regular diet per LP, RD Please refer to Nutrition Assessment for details.
[2018-03-04 16:02] VITALS: BP_SYST 142
--- NOTE | 2018-03-04 16:25 | NUR ---
RN ROUNDS PATIENT GIVEN PRN PAIN MEDICATION, NO OTHER NEEDS AT THIS TIME, CALL BELLA WITHIN REACH, WILL CONTINUE TO MONITOR.
[2018-03-04] MEDS ORDERED: MAG-AL HYDROX/SIMETH 30 ML UDC PO PRN (17:45)
--- NOTE | 2018-03-04 18:50 | NUR ---
CLOSING NOTE WILL INDORSE PATIENT TO SCIENTIFIC PROGRAMMER NURSE, ALL NEEDS MET, CLIENT HAS NO COMPLAINTS OF PAIN AT THIS TIME, CALL BELLA WITHIN REACH, BED IN LOWEST POSITION, SIDE RAILS UP, WILL CONTINUE TO MONITOR.
--- NOTE | 2018-03-04 19:52 | NUR ---
OPENING NOTES Pt and endorsement received from morning shift nurse. Pt is AAOx4, lying in bed. Pt is on saline lock on right AC G22. No complains of pain at this time. No signs of acute distress noted. Encouraged to use call light when needed. Call light with pt, bed alarm on and at its lowest level. Will continue to monitor.
[2018-03-04 20:56] VITALS: BP_SYST 101
[2018-03-04] MEDS: PANTOPRAZOLE GRANULES PACKET 40 MG GT SCH (20:59)
--- NOTE | 2018-03-04 21:02 | NUR ---
PAIN MED/MORPHINE 4MG GIVEN Pt complained of vaginal pain with a scale of 9/10. Encouraged deep breathing exercises and position of comfort. Morphine 4mg IVP given as ordered. Educated on safety precautions and side effects of medication like drowsiness. Safety precautions in place with 3 side rails up, bed alarm on and bed at its lowest. Will continue to monitor.
--- NOTE | 2018-03-05 00:19 | NUR ---
RESTING Pt is resting in bed with both eyes closed. With visible chest rise and fall noted. No signs of acute distress or SOB noted. Call light with pt, bed alarm on and at its lowest level. Will continue to monitor.
[2018-03-05 00:57] VITALS: BP_SYST 116
[2018-03-05] MEDS: MORPHINE 4 MG/ML INJ. SYRINGE IVP PRN ×5 (01:38→21:25)
--- NOTE | 2018-03-05 01:38 | NUR ---
PAIN MED/MORPHINE 4MG GIVEN Pt complained of vaginal pain with a scale of 10/10. Encouraged deep breathing exercises and position of comfort. Morphine 4mg IVP given as ordered. Educated on safety precautions and side effects of medication like drowsiness. Pt refused bed alarm at this time and was educated on risks and benefits of alarm. Call light with pt, 3 side rails up, and bed at its lowest. Will continue to monitor.
[2018-03-05] MEDS: metroNIDAZOLE 500 MG TABLET PO SCH ×3 (05:07→21:18)
[2018-03-05] MEDS: ACYCLOVIR IV 500 MG in D5W 100 ML IV SCH ×3 (05:08→21:18)
--- NOTE | 2018-03-05 05:51 | NUR ---
PAIN MED/MORPHINE 4MG GIVEN Pt complained of vaginal pain with a scale of 9/10. Encouraged deep breathing exercises and position of comfort. Morphine 4mg IVP given as ordered. Educated on safety precautions and side effects of medication like drowsiness. Call light with pt, 3 side rails up, and bed at its lowest. Will continue to monitor.
--- NOTE | 2018-03-05 07:00 | NUR ---
CLOSING NOTES Pt is awake, alert and lying in bed. No signs of acute distress or SOB noted. Call light with pt and bed at its lowest level. All needs attended throughout the shift. Will endorse to day shift nurse.
[2018-03-05 07:18] LABS: CALCIUM 8.6 mg/dL (8.4-11.0); CREATININE 0.99 mg/dL (0.55-1.30); POTASSIUM 4.8 mmol/L (3.5-5.1)
[2018-03-05 07:25] LABS: ALBUMIN 2.5 g/dL (3.4-4.8); TOTAL BILIRUBIN 0.3 mg/dL (0.0-1.0)
--- NOTE | 2018-03-05 07:35 | NUR ---
OPENING NOTE At initial assessment, patient is awake, alert and oriented x4, no acute distress noted. Breathing even and unlabored. IV site on the RAC 20G patent and intact, saline locked. No s/s of infection or infiltration. Safety and fall precautions in place, bed is in lowest position and locked, bed alarm on, side rails up x2, call light within reach, will continue to monitor.
[2018-03-05 07:57] LABS: BASOPHILS # (AUTO) 0.1 K/uL (0.0-0.2); BASOPHILS % (AUTO) 0.9 % (0.0-2.0); EOSINOPHILS # (AUTO) 0.6 K/uL (0.0-0.4); EOSINOPHILS % (AUTO) 5.4 % (0.0-4.0); HEMOGLOBIN 9.1 g/dL (12.0-16.0); LYMPHOCYTES # (AUTO) 2.1 K/uL (1.0-5.5); LYMPHOCYTES % (AUTO) 20.8 % (20.5-51.5); MEAN CORPUSCULAR HEMOGLOBIN 33 pg (27-31); MEAN CORPUSCULAR HGB CONC 34 % (32-36); MEAN CORPUSCULAR VOLUME 98 fL (79.0-98.0); MONOCYTES # (AUTO) 0.7 K/uL (0.0-1.0); NEUTROPHILS # (AUTO) 6.8 K/uL (1.8-7.7); NEUTROPHILS % (AUTO) 65.9 % (40.0-70.0); PLATELET COUNT (AUTO) 300 K/uL (130-430); RED BLOOD CELL COUNT(AUTO) 2.77 MIL/uL (4.2-6.2); RED CELL DISTRIBUTION WIDTH 16.5 % (9.0-15.0); WHITE BLOOD COUNT (AUTO) 10.3 K/uL (4.8-10.8)
[2018-03-05 08:10] VITALS: BP_SYST 113
[2018-03-05] MEDS: POTASSIUM CHLORIDE 20 MEQ TAB.PRT.SR PO SCH ×2 (09:05→14:32)
[2018-03-05] MEDS: cefTRIAXone 1 GM in D5W 50 ML IV SCH (09:05)
[2018-03-05] MEDS: LACTOBACILLUS RHAMNOSUS GG 1 CAP CAPSULE PO SCH ×2 (09:05→21:18)
[2018-03-05] MEDS: PANTOPRAZOLE GRANULES PACKET 40 MG GT SCH ×2 (09:06→21:18)
[2018-03-05] MEDS: HYDROcodone/ACETAMIN 10-325 MG TAB PO PRN ×2 (09:06→14:38)
[2018-03-05] MEDS: SODIUM BICARBONATE 650 MG TABLET PO SCH ×3 (09:06→23:12)
[2018-03-05 11:44] VITALS: BP_SYST 116
--- NOTE | 2018-03-05 11:46 | NUR ---
RN ROUNDS/PAIN Patient is awake and reports 10/10 sharp pain on the labia, medicated with PRN Morphine IVP as ordered, call light within reach, will continue to monitor.
[2018-03-05] MEDS ORDERED: ACYCLOVIR 30 GM OINT TP ONE (14:30)
--- NOTE | 2018-03-05 14:39 | NUR ---
RN ROUNDS/PAIN Patient is awake, reports 6/10 sharp pain on the left labia, medicated with PRN [place] PO as ordered. Safety and fall precautions in place, call light within reach.
--- NOTE | 2018-03-05 16:56 | NUR ---
RN ROUNDS Patient is awake, stable, no s/s of acute distress. No respiratory distress noted. Safety and fall precautions in place. Call light within reach.
[2018-03-05] MEDS: ACYCLOVIR 30 GM OINT TP SCH ×2 (18:15→22:00)
--- NOTE | 2018-03-05 18:50 | NUR ---
CLOSING NOTE Patient is awake, alert, and oriented x4, no s/s of acute distress. No respiratory distress at this time. Old IV site on the RAC got infiltrated, IV site changed by charge nurse, Soledad. IV site on the left forearm patent and intact. Safety and fall precautions in place, bed is in lowest position and locked, side rails up x2, call light within reach. All needs met and anticipated throughout the shift, will endorse plan of care.
--- NOTE | 2018-03-05 19:30 | NUR ---
OPENING NOTES: Pt and endorsement received from day shift nurse. Pt is AAOx4, lying in bed. No complains of pain and no signs of acute distress or SOB noted. Encouraged to use call light when needed. Pt refused bed alarm and was educated on safety precautions. Call light with pt and bed at its lowest level. Will continue to monitor.
[2018-03-05 21:12] VITALS: BP_SYST 123
[2018-03-05] MEDS: TEMAZEPAM 15 MG CAPSULE PO PRN (21:19)
--- NOTE | 2018-03-05 21:25 | NUR ---
MORPHINE 4MG GIVEN Pt complained of vaginal pain with a scale of 8/10. Morphine 4mg IVP given as ordered. Pt refused to apply Zovirax ointment on vaginal area. Educated pt on side effects of morphine like drowsiness and safety precautions. Encouraged to use call light when needed, bed at its lowest level with 3 side rails up. Will continue to monitor.
[2018-03-06 00:20] VITALS: BP_SYST 97
--- NOTE | 2018-03-06 02:25 | NUR ---
RESTING Pt is resting in bed with both eyes closed. With visible chest rise and fall noted. No signs of any acute distress or complains of pain at this time. Call light with pt, 3 side rails up and bed at its lowest level. Will continue to monitor.
[2018-03-06] MEDS: MORPHINE 4 MG/ML INJ. SYRINGE IVP PRN ×3 (03:36→18:28)
--- NOTE | 2018-03-06 03:36 | NUR ---
MORPHINE 4MG GIVEN Pt complained of vaginal pain with a scale of 10/10. Morphine 4mg IVP given as ordered. Educated pt on side effects of morphine like drowsiness and safety precautions. Encouraged to use call light when needed, bed at its lowest level with 3 side rails up. Will continue to monitor.
[2018-03-06] MEDS: metroNIDAZOLE 500 MG TABLET PO SCH (05:42)
[2018-03-06] MEDS: ACYCLOVIR IV 500 MG in D5W 100 ML IV SCH ×3 (05:42→21:07)
[2018-03-06] MEDS: ACYCLOVIR 30 GM OINT TP SCH ×5 (05:43→22:00)
--- NOTE | 2018-03-06 06:46 | NUR ---
CLOSING Pt is resting in bed with both eyes closed. With visible chest rise and fall with non-labored breathing noted. No complains of pain and no signs of acute distress noted. All needs attended throughout the shift. Safety precautions in place with bed at its lowest level and 3 side rails up. Call light with pt. Will endorse to days shift nurse.
--- NOTE | 2018-03-06 07:32 | NUR ---
OPENING NOTE Patient is awake, alert and oriented x4, no c/o pain at this time. No respiratory distress noted. IV site on the LAC 22G patent and intact, saline locked. Safety and fall precautions in place, bed in lowest position and locked, bed alarm on, side rails up x2, call light within reach, will continue to monitor.
[2018-03-06 07:33] LABS: CALCIUM 9.1 mg/dL (8.4-11.0); POTASSIUM 5.1 mmol/L (3.5-5.1)
[2018-03-06 08:29] VITALS: BP_SYST 117
[2018-03-06] MEDS: cefTRIAXone 1 GM in D5W 50 ML IV SCH (08:38)
[2018-03-06] MEDS: LACTOBACILLUS RHAMNOSUS GG 1 CAP CAPSULE PO SCH ×2 (08:40→21:07)
[2018-03-06] MEDS: SODIUM BICARBONATE 650 MG TABLET PO SCH ×3 (08:40→21:07)
[2018-03-06] MEDS: PANTOPRAZOLE GRANULES PACKET 40 MG GT SCH ×2 (08:41→21:07)
[2018-03-06] MEDS: HYDROcodone/ACETAMIN 10-325 MG TAB PO PRN ×2 (11:10→15:32)
--- NOTE | 2018-03-06 11:10 | NUR ---
PAIN Patient reports 6/10 vaginal pain, medicated with PRN [place] as ordered, will continue to monitor.
[2018-03-06 12:16] VITALS: BP_SYST 104
--- NOTE | 2018-03-06 15:32 | NUR ---
RN ROUNDS/PAIN/IV Patient reports vaginal pain, medicated with PRN [place] as ordered. IV site on the left forearm got pulled out, per patient, she does not know how it got pulled out. Attempted to reinsert it x1 by JOE Schmidt but unsuccessful. Informed Soledad, charge nurse. JOE Garcia started the IV site on left forearm 22G with good blood return. Safety and fall precautions in place. Call light within reach, will continue to monitor.
[2018-03-06 16:02] VITALS: BP_SYST 126
--- NOTE | 2018-03-06 18:28 | NUR ---
PAIN/CLOSING NOTE Patient is awake, alert, and oriented x4, reports 10/10 sharp vaginal pain, medicated with PRN IVP Morphine as ordered. Breathing even and unlabored. IV site on the left forearm patent and intact, saline locked. Safety and fall precautions in place, bed is low and locked, side rails up x2, call light within reach. All needs met and anticipated. Will endorse plan of care.
--- NOTE | 2018-03-06 19:21 | NUR ---
OPENING NOTES Pt and endorsement received from day shift nurse. Pt is AAOx4, lying in bed. No signs of acute distress noted. Encouraged to use call light when needed. Pt refused bed alarm and was educated on safety precautions. Call light with pt and bed at its lowest level. Will continue to monitor.
[2018-03-06 21:05] VITALS: BP_SYST 108
[2018-03-06] MEDS: TEMAZEPAM 15 MG CAPSULE PO PRN (21:13)
[2018-03-07 00:25] VITALS: BP_SYST 91
--- NOTE | 2018-03-07 00:25 | NUR ---
PT IN PAIN Pt is complaining with vaginal pain that woke her up. Explained her that I couldn't give her Morphine for pain because her BP was low that the PACKAGE DESIGNER Sara checked twice and the latest was 91/40. Pt states understanding. No other signs of acute distress or SOB noted. Safety precautions in place and call light with pt. Will continue to monitor.
--- NOTE | 2018-03-07 01:55 | NUR ---
RESTING Pt is resting in bed with both eyes closed. With visible chest rise and fall with unlabored breathing noted. No signs of any acute distress noted. Safety precautions in place and call light with pt. Will continue to monitor.
[2018-03-07] MEDS: MORPHINE 4 MG/ML INJ. SYRINGE IVP PRN ×5 (03:24→23:01)
--- NOTE | 2018-03-07 03:24 | NUR ---
MORPHINE 4MG GIVEN Pt complained of pain on vaginal area with a scale of 10/10. Encouraged position of comfort like side lying to the left. Morphine 4mg IVP given as ordered. Educated on side effects like drowsiness and safety precautions, pt verbalizes understanding. Call light with pt and bed at its lowest level. Will continue to monitor.
[2018-03-07] MEDS: ACYCLOVIR IV 500 MG in D5W 100 ML IV SCH ×3 (05:02→21:27)
[2018-03-07] MEDS: ACYCLOVIR 30 GM OINT TP SCH ×5 (05:08→21:27)
--- NOTE | 2018-03-07 07:00 | NUR ---
CLOSING NOTES Pt is awake, alert and lying in bed. Pt states she had difficulty voiding due to pain on her vaginal area, but pt states she was able to empty her bladder. All needs attended throughout the shift. Safety precautions maintained and call light with pt. Will endorse to day shift nurse.
[2018-03-07 08:00] VITALS: BP_SYST 128
--- NOTE | 2018-03-07 08:00 | NUR ---
Opening Note/refuse bed alarm received report from consultant internship RN, pt resting in bed, A&Ox4, respirations even and unlabored on room air, pt reports pain is controlled at this time, no acute distress noted, IV site clean, dry, and intact, Dr. Bright at bedside, pt states that she had difficulty initiating urination this AM but was able to void, Dr. Bright aware, pt educated on use of call light and asked to call for assistance, pt verbalized understanding, call light in reach, pt educated on use of bed alarm for pt safety, pt refusing bed alarm, bed in low and locked position, fall and aspiration precautions in place.
[2018-03-07] MEDS: PANTOPRAZOLE GRANULES PACKET 40 MG PO SCH ×2 (08:52→20:23)
[2018-03-07] MEDS: SODIUM BICARBONATE 650 MG TABLET PO SCH ×3 (08:52→20:23)
[2018-03-07] MEDS: LACTOBACILLUS RHAMNOSUS GG 1 CAP CAPSULE PO SCH ×2 (08:52→20:23)
--- NOTE | 2018-03-07 09:03 | NUR ---
Pain Management/Medication pt complaint of pain 12/06 to left labia, pt educated on use and side effects of PRN morphine and all medications, pt verbalized understanding, vital signs stable, pt tolerated medication administration well, no acute distress noted, fall and aspiration precautions in place.
--- NOTE | 2018-03-07 10:05 | NUR ---
Education/refuse med pt educated on use and side effects of zovirax ointment, pt states that she does not want the medication at this time, pt states "can we do it in a little bit",will attempt again, fall and aspiration precautions in place.
--- NOTE | 2018-03-07 11:39 | NUR ---
Education/Refuse pt educated on use and side effects of zovirax, pt states, "can we do it in a little bit", will come back later, no acute distress noted, fall and aspiration precautions in place.
[2018-03-07 12:27] VITALS: BP_SYST 101
--- NOTE | 2018-03-07 13:40 | NUR ---
Pain Management/Medication pt complaint of pain /10 to left labia, pt educated on use and side effects of PRN morphine and all medications, pt verbalized understanding, vital signs stable, BP 117/67, HR 70, respirations 17, pt tolerated medication administration well, no acute distress noted, fall and aspiration precautions in place.
--- NOTE | 2018-03-07 14:19 | NUR ---
Medication pt educated on medication use and side effects, pt verbalized understanding, tolerated medication administration well, no acute distress noted, fall and aspiration precautions in place.
[2018-03-07] MEDS: HYDROcodone/ACETAMIN 10-325 MG TAB PO PRN ×2 (15:42→20:28)
--- NOTE | 2018-03-07 15:44 | NUR ---
Pain Management/Medication pt complaint of pain /10 to left labia, pt educated on use and side effects of PRN norco, pt verbalized understanding, tolerated medication administration well, no acute distress noted, fall and aspiration precautions in place.
[2018-03-07 16:46] VITALS: BP_SYST 110
--- NOTE | 2018-03-07 17:21 | NUR ---
Education/Refused med pt educated on use and side effects of zovirax ointment, pt refusing zovirax ointment, pt resting in bed, no acute distress noted, no additional needs at this time, fall and aspiration precautions in place.
--- NOTE | 2018-03-07 18:44 | NUR ---
Pain Management/Medication pt complaint of pain 10/10 to left labia, pt educated on use and side effects of PRN morphine, pt verbalized understanding, BP 119/73, HR 71, respirations 17, pt tolerated medication administration well, no acute distress noted, fall and aspiration precautions in place.
--- NOTE | 2018-03-07 19:20 | NUR ---
Closing Note pt resting in bed, A&Ox5, respirations even and unlabored on room air, pt reports pain is controlled at this time, no acute distress noted, pt educated on use of call light and asked to call for assistance, pt verbalized understanding, call light in reach, pt educated on use of bed alarm for pt safety, pt refusing bed alarm, bed in low and locked position, fall and aspiration precautions in place, care endorsed to Lucretia RN.
--- NOTE | 2018-03-07 19:30 | NUR ---
Initial Notes Received handoff report from offgoing nurse at the bedside. Patient is awake and alert, resting comfortably in bed. No SOB, no acute distress, no complaints of pain at this time. Bed is locked, in the lowest position, 2x side rails up. Patient refuses bed alarm at this time. Call light is within reach. Explained plan of care to the patient. Patient verbalized understanding.
[2018-03-07 20:00] VITALS: BP_SYST 105
[2018-03-07] MEDS: TEMAZEPAM 15 MG CAPSULE PO PRN (20:27)
--- NOTE | 2018-03-07 20:28 | NUR ---
Patient is complaining of vaginal pain. Provided [place] PRN per MD order, see eMAR for details.
--- NOTE | 2018-03-07 21:30 | NUR ---
Patient is complaining that her morphine and norco are not doing enough to relieve the pain, and that she would like me to call Dr Rider for something else for pain. Will page Dr Rider for orders.
--- NOTE | 2018-03-07 21:34 | NUR ---
PAGED I PAGED DR. READ @ [id number] I SPOKE WITH VIKTORIA ORTEGA
--- NOTE | 2018-03-07 22:05 | NUR ---
PAGED I PAGED DR. READ @ [id number] I SPOKE WITH IZZY ORTEGA THIS IS THE SECOND PAGED FIRST PAGED WAS AT [phone] DR. READ CALLED BACK AT [phone]
--- NOTE | 2018-03-07 22:08 | NUR ---
DR READ orders Dr Read called back. Notified him that the patient has already received morphine and norco, but still has no relief of pain and wanted to take something else. Dr Read ordered Lyrica 50mg BID, first dose to be given now. Orders noted.
[2018-03-07] MEDS ORDERED: PREGABALIN 25 MG CAPSULE (LYRICA) PO SCH (22:30)
--- NOTE | 2018-03-07 23:07 | NUR ---
Patient is complaining of pain. Provided morphine PRN per MD order, see eMAR for details.
[2018-03-08 00:29] VITALS: BP_SYST 110
--- NOTE | 2018-03-08 00:33 | NUR ---
Patient is resting comfortably in bed with eyes closed. No SOB, no acute distress, no signs of pain or facial grimacing at this time. Breathing is even and unlabored with visible chest rise and fall noted. Bed is locked, in the lowest position, 2x side rails up. Call light is within reach.
--- NOTE | 2018-03-08 03:39 | NUR ---
Patient is resting comfortably in bed. No SOB, no acute distress, no signs of pain or facial grimacing at this time. Breathing is even and unlabored. Call light is within reach.
[2018-03-08] MEDS: MORPHINE 4 MG/ML INJ. SYRINGE IVP PRN ×2 (05:02→10:21)
[2018-03-08] MEDS: ACYCLOVIR 30 GM OINT TP SCH ×2 (05:04→10:00)
[2018-03-08] MEDS: ACYCLOVIR IV 500 MG in D5W 100 ML IV SCH (05:04)
--- NOTE | 2018-03-08 05:48 | NUR ---
Patient is resting comfortably in bed, awake and alert. No SOB, no acute distress, no complaints of pain at this time. IV site is intact, currently infusing medication per MD order, see eMAR for details. Bed is locked, in the lowest position, 2x side rails up. Call light is within reach. Encouraged patient to call. Provided nourishment per patient request, nelsy dior.
[2018-03-08] MEDS: HYDROcodone/ACETAMIN 10-325 MG TAB PO PRN (06:34)
--- NOTE | 2018-03-08 06:43 | NUR ---
Patient's IV on the left forearm infiltrated. IV catheter has been removed, catheter is intact. New IV started on the right AC #22g. Patient tolerated procedure well.
--- NOTE | 2018-03-08 07:17 | NUR ---
Closing Notes Patient is resting comfortably in bed, awake and alert. No SOB, no acute distress, no complaints of pain at this time. IV site is intact, dressing clean and dry, saline locked. Bed is locked, placed in the lowest position, 2x side rails up. Patient refuses bed alarm at this time. Call light is within reach. Fall and safety precautions maintained. All needs have been met during this shift. Handoff report given to oncoming dayshift nurse at the bedside.
[2018-03-08 07:34] LABS: CALCIUM 8.6 mg/dL (8.4-11.0); CREATININE 0.93 mg/dL (0.55-1.30); PHOSPHORUS 3.5 mg/dL (2.7-4.5); POTASSIUM 3.7 mmol/L (3.5-5.1)
[2018-03-08 08:00] VITALS: BP_SYST 112
--- NOTE | 2018-03-08 08:00 | NUR ---
Opening Note received report from manufacturing supervisor 2nd shift RN, pt resting in bed, A&Ox4, respirations even and unlabored on room air, pt reports pain is controlled, no acute distress noted, IV site clean, dry, and intact, pt educated on use of call light and asked to call for assistance, pt verbalized understanding, call light in reach, pt educated on use of bed alarm for pt safety, pt refusing bed alarm, bed in locked and low position, fall and aspiration precautions in place.
[2018-03-08 08:09] LABS: BASOPHILS # (AUTO) 0.1 K/uL (0.0-0.2); BASOPHILS % (AUTO) 1.3 % (0.0-2.0); EOSINOPHILS # (AUTO) 0.5 K/uL (0.0-0.4); EOSINOPHILS % (AUTO) 5.4 % (0.0-4.0); HEMATOCRIT 28.9 % (36-48); HEMOGLOBIN 9.3 g/dL (12.0-16.0); LYMPHOCYTES # (AUTO) 2.3 K/uL (1.0-5.5); LYMPHOCYTES % (AUTO) 24.8 % (20.5-51.5); MEAN CORPUSCULAR HEMOGLOBIN 32 pg (27-31); MEAN CORPUSCULAR HGB CONC 32 % (32-36); MEAN CORPUSCULAR VOLUME 100 fL (79.0-98.0); MONOCYTES # (AUTO) 0.7 K/uL (0.0-1.0); MONOCYTES % (AUTO) 7.9 % (1.7-9.3); NEUTROPHILS # (AUTO) 5.8 K/uL (1.8-7.7); NEUTROPHILS % (AUTO) 60.6 % (40.0-70.0); PLATELET COUNT (AUTO) 360 K/uL (130-430); RED CELL DISTRIBUTION WIDTH 15.9 % (9.0-15.0); WHITE BLOOD COUNT (AUTO) 9.4 K/uL (4.8-10.8)
[2018-03-08] MEDS: LACTOBACILLUS RHAMNOSUS GG 1 CAP CAPSULE PO SCH (08:18)
[2018-03-08] MEDS: SODIUM BICARBONATE 650 MG TABLET PO SCH (08:18)
[2018-03-08] MEDS: PANTOPRAZOLE GRANULES PACKET 40 MG PO SCH (08:18)
--- NOTE | 2018-03-08 08:20 | NUR ---
Medication/Notes pt seen walking back to room from outside, pt educated on pt safety and asked to call for assistance to accompany her before leaving the unit, pt verbalized understanding, pt educated on medication use and side effects, pt verbalized understanding, tolerated medication administration well, no acute distress noted, fall and aspiration precautions in place.
[2018-03-08] MEDS ORDERED: PREGABALIN 25 MG CAPSULE (LYRICA) PO SCH (09:00)
--- NOTE | 2018-03-08 10:25 | NUR ---
Pain Management/Medication pt complaint of pain 8/ to left labia, pt educated on use and side effects of PRN morphine, pt verbalized understanding, vital signs stable, tolerated medication administration well, no acute distress noted, fall and aspiration precautions in place.
[2018-03-08] MEDS ORDERED: TYC3 PO (11:09)
[2018-03-08] MEDS ORDERED: LYR50 PO (11:10)
[2018-03-08] MEDS ORDERED: ACYC400T PO (11:10)
[2018-03-08 11:22] VITALS: BP_SYST 112
--- NOTE | 2018-03-08 12:35 | NUR ---
Social Service Note: Pt has requested a letter confirming pt was in the hospital; [employer] has provided pt with a letter stating admission and DC dates.
[2018-03-08 12:38] VITALS: BP_SYST 111
--- NOTE | 2018-03-08 12:45 | NUR ---
Discharge pt provided with discharge packet and instructions, written prescription for tylenol #3, lyrica, and acyclovir provided, pt instructed to follow up with PCP and security team lead in one week, pt verbalized understanding, IV catheter removed, catheter intact, no bleeding, pt A&Ox4, alert,no acute distress noted, no signs of drowsiness or lethargy, steady gait noted, pt refusing wheelchair to parking lot, pt ambulated to parking lot, all belongings sent with pt.
[2018-03-08 15:21] LABS: HSV 1 IgG, TYPE SPECIFIC <0.91
== END 2018-03-08 13:00 | disposition home or self-care (01) | DRG 531 ==
LOC: SED 10:04 → STU 12:49 → SMU 03-02 19:37
PROVIDERS: ADMIT Internal Medicine; ATTEND Internal Medicine
DX: A60.04 Herpesviral vulvovaginitis (principal); E87.2 Acidosis; D64.9 Anemia, unspecified; K52.9 Noninfective gastroenteritis and colitis, unspecified; N39.0 Urinary tract infection, site not specified; N18.9 Chronic kidney disease, unspecified; G89.4 Chronic pain syndrome; F17.200 Nicotine dependence, unspecified, uncomplicated; E87.6 Hypokalemia; J45.909 Unspecified asthma, uncomplicated; N76.5 Ulceration of vagina; L73.9 Follicular disorder, unspecified; N76.2 Acute vulvitis
CPT/HCPCS: 36415; 71045; 80048; 80053; 80307; 81000-TC; 82150-TC; 83540-TC; 83550-TC; 83605; 83690-TC; 83735-TC; 84100-TC; 85025; 85610-TC; 85651-TC; 85730-TC; 86592; 86694; 86695; 86696; 87040-TC; 87045-TC; 87070-TC; 87086; 87210-TC; 87252; 87491; 87591; 89055; 90656; 96361; 96365; 96375; 96376; 99285; G0378; J0133; J0696; J1885; J2270; J2405; J7030; J7050; J7060; J7120; Q9964; Q9967

== ENCOUNTER 2019-06-11 13:51 | Emergency (ER) | payer MEDICAID ==
[~2019-06-11] VITALS: Ht 162.6 cm; Wt 44.0 kg
[~2019-06-11 13:51] MED LIST: ACYC400T PO; LYR50 PO; TYC3 PO
[2019-06-11 14:11] VITALS: BP_SYST 129
[2019-06-11] MEDS ORDERED: MORPHINE 4 MG/ML INJ. SYRINGE IVP ONE (14:45)
[2019-06-11] MEDS ORDERED: KETOROLAC TROMETHAMINE 30 MG VIAL IVP ONE (14:45)
[2019-06-11 15:50] VITALS: BP_SYST 129
== END 2019-06-11 15:51 | disposition home or self-care (01) ==
LOC: SED 13:51
DX: C51.9 Malignant neoplasm of vulva, unspecified (principal); Z87.412 Personal history of vulvar dysplasia; Z48.00 Encounter for change or removal of nonsurgical wound dressing
CPT/HCPCS: 96374; 96375; 99284; J1885; J2270

== ENCOUNTER 2022-09-19 17:16 | Emergency (ER) | payer MEDICAID ==
[~2022-09-19] VITALS: Ht 160 cm; Wt 108.9 kg
[~2022-09-19 17:16] MED LIST changes: -ACYC400T PO; +ACYC400T19 PO
[2022-09-19 17:30] VITALS: BP_SYST 133
[2022-09-19] MEDS ORDERED: carisoprodoL 350 MG TABLET PO ONE (17:45)
[2022-09-19] MEDS ORDERED: KETOROLAC TROMETHAMINE 60 MG/2 ML VIAL IM ONE (17:45)
[2022-09-19] MEDS ORDERED: DICL75TA5 PO (18:46)
[2022-09-19] MEDS ORDERED: SOM350 PO (18:46)
[2022-09-19 18:54] VITALS: BP_SYST 133
== END 2022-09-19 18:54 | disposition home or self-care (01) ==
LOC: SED 17:16
DX: S39.012A Strain of muscle, fascia and tendon of lower back, initial encounter (principal); M54.31 Sciatica, right side; Z79.899 Other long term (current) drug therapy; X58.XXXA Exposure to other specified factors, initial encounter; Y93.89 Activity, other specified; Y92.89 Other specified places as the place of occurrence of the external cause; Y99.8 Other external cause status
CPT/HCPCS: 99284; 73502; 96372; 72170; J1885